=== PATIENT | female | born 1960 | race Caucasian/White ===

== ENCOUNTER → 2020-06-14 | Outpatient (CLI) | payer OTHER ==
[~2020-06-14] MED LIST: ADMELOG SO100 UNIT/1 SC; ATORVASTATIN CA10 MG PO; BASAGLAR K100 UNIT/1 SQ; CLARITIN 10MG T10 MG PO; CYCLOBENZAPRINE10 MG PO; DECADRON6 MG PO; GLUCOTROL 10 MG10 MG PO; HYDROCHLOROTHIA25 MG PO; JANUVIA100 MG PO; LEVOTHYROXINE175 MCG PO; LISINOPRIL20 MG PO; OMEPRAZOLE20 MG PO; OMNICEF 300 MG300 MG PO; VENTOLIN HFA 66.7 GM INH
== END ==
LOC: EXRD 10:43
DX: M79.604 Pain in right leg (principal); I83.91 Asymptomatic varicose veins of right lower extremity
CPT/HCPCS: 93971

== ENCOUNTER → 2020-12-18 | Outpatient (CLI) | payer OTHER | LOC: RAD 09:06 | DX: M79.672 Pain in left foot (principal); M79.671 Pain in right foot; M79.642 Pain in left hand; M79.641 Pain in right hand; R79.82 Elevated C-reactive protein (CRP); R70.0 Elevated erythrocyte sedimentation rate; M19.072 Primary osteoarthritis, left ankle and foot; M19.071 Primary osteoarthritis, right ankle and foot | CPT/HCPCS: 73130; 73630 ==

== ENCOUNTER → 2021-07-30 | Outpatient (CLI) | payer OTHER | LOC: US 09:20 | DX: M54.2 Cervicalgia (principal); K76.0 Fatty (change of) liver, not elsewhere classified; R59.0 Localized enlarged lymph nodes | CPT/HCPCS: 76536 ==

== ENCOUNTER → 2021-08-08 | Outpatient (CLI) | payer OTHER | LOC: US 09:09 | DX: K76.0 Fatty (change of) liver, not elsewhere classified (principal) | CPT/HCPCS: 76700 ==